=== PATIENT | male | born 1960 | race Caucasian/White ===

== ENCOUNTER 2021-02-05 20:10 | Emergency (ER) | payer OTHER ==
[2021-02-05 20:57] LABS: BASOPHIL 0.7 % (0-2); EOSINOPHIL 4.5 % (0-5); HCT 36.7 % (42.0-52.0); HGB 11.7 g/dl (13.2-18.0); LYMPHOCYTE 10.9 % (15-48); MCH 26.5 pg (25.0-31.0); MCHC 31.9 g/dL (32.0-36.0); MCV 83.2 fL (78.0-100.0); MONOCYTE 9.3 % (0-12); MPV 8.1 fL (6.0-9.5); NEUTROPHIL 74.1 % (41-80); NRBC 0; PLT 474 K/uL (150-400); RBC 4.41 M/uL (4.70-6.00); RDW 15.3 % (11.5-14.0); WBC 8.7 K/uL (4.0-10.5)
[2021-02-05 21:13] LABS: ALBUMIN 2.8 g/dL (3.4-5.0); BILIRUBIN - TOTAL 0.2 mg/dL (0.2-1.0); BUN/CREAT RATIO (CALC) 27.5 RATIO; C-REACTIVE PROTEIN 10.7 mg/dL (<=0.90); CREATININE 0.91 mg/dL (0.67-1.17); GLOBULIN (CALCULATION) 5.5 g/dL; POTASSIUM 4.3 mmol/L (3.5-5.1); TOTAL PROTEIN 8.3 g/dL (6.4-8.2)
[2021-02-05] MEDS ORDERED: NORCO 5-325 TA1 EACH PO (22:44)
[2021-02-05] MEDS ORDERED: MOBIC7.5 MG PO (22:44)
[2021-02-05] MEDS ORDERED: VIBRAMYCIN100 MG PO (22:47)
== END 2021-02-05 22:53 | disposition home or self-care (01) ==
LOC: FER 20:10
PROVIDERS: Emergency Medicine Emergency Medical Services
DX: M19.072 Primary osteoarthritis, left ankle and foot (principal)
CPT/HCPCS: 36415; 73630; 80053; 84550; 85025; 86140; J1885